=== PATIENT | male | born 1960 | race Asian ===

== ENCOUNTER 2021-05-11 11:51 | Emergency (ER) | payer MEDICARE ==
[~2021-05-11] VITALS: Ht 162.6 cm; Wt 62.8 kg
[~2021-05-11 11:51] MED LIST: ASPI-630 PO; CRESTOR20 MG PO; LISI-517 PO; LISI10TA16 PO; [UNRECOGNIZED DRUG - CODE] MC
[2021-05-11 12:10] VITALS: BP 188/108
--- NOTE | 2021-05-11 12:17 | PHYS DOC ---
Past History Past Medical History: CVA, Hypertension Past Surgical History: No Surgical History Smoking: Cigarettes, Less than 1pk/day Alcohol Use: None Drug Use: None General Adult EDM: Chief Complaint: HYPERTENSION HPI: HPI: Patient is a 60-year-old male being seen in the ER for hypertension. Patient reports that he has had a heaviness in his head and has had some dizziness and nausea so he checked his blood pressure and it was 160/100 at home. Patient takes 20 mg of lisinopril he denies missing a dose. Patient reports that he is not having a headache ache chest pain heaviness and denies any pain. He denies any treatment prior to arrival. He denies vision changes, chest pain, shortness of breath, palpitations. Patient's primary care provider is Dr. Camarena and he has an appointment tomorrow afternoon at 1130. Review of Systems: Review of Systems: 14 body systems of the review of systems have been reviewed. See HPI for pertinent positive and negative responses, otherwise all other systems are negative, nonpertinent or noncontributory Allergies: Allergies: Allergies Coded Allergies Type Severity Reaction Last Updated Verified No Known Drug Allergies 02/17/14 No Physical Exam: PE: Constitutional: Well developed, well nourished, no acute distress, non-toxic appearance. [] HENT: Normocephalic, atraumatic, bilateral external ears normal, oropharynx moist, no oral exudates, nose normal. [] Eyes: PERRLA, 4 mm bilaterally, EOMI, conjunctiva normal, no discharge. [] Neck: Normal range of motion, no stridor Cardiovascular:Heart rate regular rhythm, no murmur [] Lungs & Thorax: Bilateral breath sounds clear to auscultation [] Abdomen: Bowel sounds normal, soft, no tenderness, no masses, no pulsatile masses. [] Skin: Warm, dry, no erythema, no rash. [] Back: Normal range of motion Extremities: No tenderness, no cyanosis, no clubbing, ROM intact, no edema. [] Neurologic: Alert and oriented X 3, normal motor function, normal sensory function, no focal deficits noted. [] Psychologic: Affect normal, judgement normal, mood normal. [] Current Patient Data: Labs: Laboratory Tests Test 05/11/21 12:26 White Blood Count 7.2 x10^3/uL Red Blood Count 4.98 x10^6/uL Hemoglobin 16.2 g/dL Hematocrit 47.3 % Mean Corpuscular Volume 95 fL Mean Corpuscular Hemoglobin 33 pg Mean Corpuscular Hemoglobin Concent 34 g/dL Red Cell Distribution Width 13.3 % Platelet Count 295 x10^3/uL Neutrophils (%) (Auto) 52 % Lymphocytes (%) (Auto) 39 % Monocytes (%) (Auto) 7 % Eosinophils (%) (Auto) 1 % Basophils (%) (Auto) 1 % Neutrophils # (Auto) 3.7 x10^3uL Lymphocytes # (Auto) 2.8 x10^3/uL Monocytes # (Auto) 0.5 x10^3/uL Eosinophils # (Auto) 0.1 x10^3/uL Basophils # (Auto) 0.0 x10^3/uL Sodium Level 140 mmol/L Potassium Level 4.1 mmol/L Chloride Level 106 mmol/L Carbon Dioxide Level 27 mmol/L Anion Gap 7 Blood Urea Nitrogen 10 mg/dL Creatinine 0.9 mg/dL Estimated GFR (Cockcroft-Gault) 85.5 BUN/Creatinine Ratio 11 Glucose Level 95 mg/dL Calcium Level 8.6 mg/dL Total Bilirubin 0.3 mg/dL Aspartate Amino Transf (AST/SGOT) 33 U/L Alanine Aminotransferase (ALT/SGPT) 51 U/L Alkaline Phosphatase 86 U/L Troponin I Quantitative < 0.017 ng/mL Total Protein 7.3 g/dL Albumin 3.8 g/dL Albumin/Globulin Ratio 1.1 Current Medications Medications (Trade) Dose Ordered Sig/Haja Route PRN Reason Start Time Stop Time Status Last Admin Dose Admin Sodium Chloride 1,000 ml @ 1,000 mls/hr 1X ONCE IV 05/11/21 12:15 05/11/21 13:14 DC 05/11/21 12:25 Ondansetron HCl (Zofran) 4 mg 1X ONCE IVP 05/11/21 12:15 05/11/21 12:23 DC 05/11/21 12:25 EKG: EKG: EKG performed by ER staff at 1158 shows sinus rhythm with left bundle branch b lock, no STEMI as read by Dr. Bowman at 1208. [] Radiology/Procedures: Radiology/Procedures: PROCEDURE: CT HEAD WO CONTRAST INDICATION: Reason: dizzy, htn / Spl. Instructions: / History: COMPARISON: May 02, 2016 TECHNIQUE: Axial CT images obtained through the head without intravenous contrast. One or more of the following individualized dose reduction techniques were utilized for this examination: 1. Automated exposure control; 2. Adjustment of the mA and/or kV according to patient size; 3. Use of iterative reconstruction technique. FINDINGS: No intracranial hemorrhage. No significant midline shift. Ventricles and sulci are globally prominent. Scattered foci of low attenuation within the white matter. IMPRESSION: * No acute intracranial hemorrhage. * Scattered regions of low attenuation within the white matter. Non-specific in nature but a common finding and frequently secondary to small vessel ischemic disease. * There is again prominence of the subdural space frontally which could be from focal volume loss with another possible cause including chronic subdural hygroma. * There is also prominent loss of volume at the cerebellum with atrophy. * Repeat demonstration of focus of low density in the right side of the brainstem which could be from prior lacunar infarct. Electronically signed by: Teo Figueredo MD (05/11/2021 12:45 PM) [employer]- [id number] DICTATED AND SIGNED BY: TEO FIGUEREDO MD DATE: 05/11/21 1238 CC: NAIDA FINCH APRN; DEBBI CAMARENA MD ~MTH0 0 PROCEDURE: CHEST AP ONLY XR CHEST 1V History: Reason: dizziness, nausea / Spl. Instructions: / History: Comparison: May 02, [address] chest March 03, 2014 Findings: No consolidation or pleural effusion. Normal heart size. No pneumothorax. Impression: 1. No acute cardiopulmonary process. Electronically signed by: Ulices Cohen DO (05/11/2021 12:58 PM) [id number] DICTATED AND SIGNED BY: ULICES COHEN DO DATE: 05/11/21 1256 CC: NAIDA FINCH APRN; DEBBI CAMARENA MD ~MTH0 0 [] Heart Score: C/O Chest Pain: No Risk Factors: Risk Factors: DM, Current or recent (<one month) smoker, HTN, HLP, family history of CAD, obesity. Risk Scores: Score 0 - 3: 2.5% MACE over next 6 weeks - Discharge Home Score 4 - 6: 20.3% MACE over next 6 weeks - Admit for Clinical Observation Score 7 - 10: 72.7% MACE over next 6 weeks - Early Invasive Strategies Course & Med Decision Making: Course & Med Decision Making Pertinent Labs and Imaging studies reviewed. (See chart for details) [] Patient is a 60-year-old male being seen in the ER for elevated blood pressure reading. Work-up in the ER consisted of a chest x-ray, CT scan of head, EKG, blood work. Patient was treated with IV fluids, Zofran for nausea. Following treatment in the ER, patient reports improvement in his symptoms. Blood pressure recheck was 160/95. Work-up in the ER was negative for any acute findings. Patient was not noted to have any increased BUN/creatinine. Patient is agreeable to be discharged home to follow-up with his primary care provider at his appointment tomorrow afternoon. I spoke with patient about his appointment tomorrow with his primary care provider and he will discuss his HTN treatments with Dr. Camarena. I discussed with patient all findings and diagnostic testing as well as the need to follow-up with PCP for further evaluation and treatment or return to the ER if any new or worsening symptoms. Strict return precautions were also discussed at length. Patient voiced understanding and agreement with the plan. Patient is hemodynamically stable at the time of disposition. Dragon Disclaimer: [employer] Disclaimer: This electronic medical record was generated, in whole or in part, using a voice recognition dictation system. Departure Departure: Impression: Primary Impression: Hypertension Qualified Codes: I10 - Essential (primary) hypertension Additional Impression: Dizziness Disposition: HOME / SELF CARE / HOMELESS Condition: GOOD Referrals: DEBBI CAMARENA MD (PCP) Patient Instructions: Hypertension Additional Instructions: You were seen in the ER today for an elevated blood pressure with symptoms of head heaviness and dizziness. You were treated in the ER with fluids and nausea medication. You reported improvement in your symptoms following the medications. Your work-up in the ER has been unremarkable. Your physical exam was reassuring. You have an appointment tomorrow with your primary care provider. Please follow-up with them tomorrow regarding the management of your hypertension. Prior to your discharge, your blood pressure has decreased. Please return to the ER if you develop chest pain, shortness of breath, dizziness, syncope, uncontrollable nausea or vomiting, palpitations. Please continue to monitor your blood pressures at home and continue taking your lisinopril as directed. EMERGENCY DEPARTMENT GENERAL DISCHARGE INSTRUCTIONS Thank you for coming to [facility] (ED) today and trusting us with you care. We trust that you had a positivie experience in our Emergency Department. If you wish to speak to the department management, you may call the director at [phone]. YOUR FOLLOW UP INSTRUCTIONS ARE FOLLOWS: 1. Do you have a private Doctor? If you do not have a private doctor, please ask for a resource list of physicians or clinics that may be able to assist you with follow up care. 2. The Emergency Physician has interpreted your x-rays. The X-Ray specialist will also review them. If there is a change in the findings, you will be notified in 48 hours when at all possible. 3. A lab test or culture has been done, your results will be reviewed and you will be notified if you need a change in treatment. ADDITIONAL INSTRUCTIONS AND INFORMATION: 1. Your care today has been supervised by a physician who is specially trained in emergency care. Many problems require more than one evaluation for a complete diagnosis and treatment. We recommend that you schedule your follow up appointment as recommended to ensure complete treatment of you illness or injury. If you are unable to obtain follow up care and continue to have a problem, or if your condition worsens, we recommend that you return to the ED. 2. We are not able to safely determine your condition over the phone nor are we able to give sound medical advice over the phone. For these safety reasons, if you call for medical advice we will ask you to come to the ED for further evaluation. 3. If you have any questions regarding these discharge instructions please call the ED at [phone]. SAFETY INFORMATION: In the interest of safety, wellness, and injury prevention; we encourage you to wear your sealbelt, if you smoke; quite smoking, and we encourage family to use a protective helmet for bicycling and other sporting events that present an increased risk for head injury. IF YOUR SYMPTOMS WORSEN OR NEW SYMPTOMS DEVELOP, OR YOU HAVE CONCERNS ABOUT YOUR CONDITION; OR IF YOUR CONDITION WORSENS WHILE YOU ARE WAITING FOR YOUR FOLLOW UP APPOINTMENT; EITHER CONTACT YOUR PRIMARY CARE DOCTOR, THE PHYSICIAN WHOSE NAME AND NUMBER YOU WERE GIVEN, OR RETURN TO THE ED IMMEDIATELY. NAIDA FINCH APRN May 11, 2021 12:17
[2021-05-11] MEDS: ONDANSETRON PF 4 MG/2 ML VIAL. IVP ONE (12:25)
[2021-05-11] MEDS: IV NORMAL SALINE 1,000ML 1,000 ML IV ONE (12:25)
--- NOTE | 2021-05-11 12:39 | EKG ---
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
--- NOTE | 2021-05-11 12:48 | RAD ---
INDICATION: Reason: dizzy, htn / Spl. Instructions: / History: COMPARISON: May 02, 2016 TECHNIQUE: Axial CT images obtained through the head without intravenous contrast. One or more of the following individualized dose reduction techniques were utilized for this examinat ion: 1. Automated exposure control; 2. Adjustment of the mA and/or kV according to patient size; 3 . Use of iterative reconstruction technique. FINDINGS: No intracranial hemorrhage. No significant midline shift. Ventricles and sulci are globally prominent. Scattered foci of low attenuation within the white matter. IMPRESSION: * No acute intracranial hemorrhage. * Scattered regions of low attenuation within the white matter. Non-specific in nature but a common finding and frequently secondary to small vessel ischemic disease. * There is again prominence of the subdural space frontally which could be from focal volume loss wi th another possible cause including chronic subdural hygroma. * There is also prominent loss of volume at the cerebellum with atrophy. * Repeat demonstration of focus of low density in the right side of the brainstem which could be fro m prior lacunar infarct. Electronically signed by: Ron Leon MD (05/11/2021 12:45 PM) [id number]
--- NOTE | 2021-05-11 13:01 | RAD ---
XR CHEST 1V History: Reason: dizziness, nausea / Spl. Instructions: / History: Comparison: May 02, [address] chest March 03, 2014 Findings: No consolidation or pleural effusion. Normal heart size. No pneumothorax. Impression: 1. No acute cardiopulmonary process. Electronically signed by: Ulices De DO (05/11/2021 12:58 PM) [id number]
[2021-05-11 13:05] LABS: BASO % 1 % (0-3); EOS # 0.1 x10^3/uL (0.0-0.7); EOS % 1 % (0-3); HEMATOCRIT 47.3 % (39.0-53.0); HEMOGLOBIN 16.2 g/dL (13.0-17.5); LYMPH # 2.8 x10^3/uL (1.0-4.8); LYMPH % 39 % (24-48); MEAN CORPUSCULAR HEMOGLOBIN 33 pg (25-35); MEAN CORPUSCULAR HGB CONC 34 g/dL (31-37); MEAN CORPUSCULAR VOLUME 95 fL (79-100); MONO # 0.5 x10^3/uL (0.0-1.1); MONO % 7 % (0-9); NEUT # 3.7 x10^3uL (1.8-7.7); NEUT % 52 % (31-73); PLATELET COUNT 295 x10^3/uL (140-400); RED BLOOD COUNT 4.98 x10^6/uL (4.30-5.70); RED CELL DISTRIBUTION WIDTH 13.3 % (11.5-14.5); WHITE BLOOD COUNT 7.2 x10^3/uL (4.0-11.0)
[2021-05-11 13:11] LABS: CALCIUM 8.6 mg/dL (8.5-10.1); CREATININE 0.9 mg/dL (0.7-1.3); GFR 85.5; POTASSIUM 4.1 mmol/L (3.5-5.1)
[2021-05-11 13:18] LABS: ALBUMIN 3.8 g/dL (3.4-5.0); ALBUMIN/GLOBULIN RATIO 1.1 (1.0-1.7); TOTAL BILIRUBIN 0.3 mg/dL (0.2-1.0); TOTAL PROTEIN 7.3 g/dL (6.4-8.2)
== END 2021-05-11 13:50 | disposition home or self-care (01) ==
LOC: ER 11:51
DX: I10 Essential (primary) hypertension (principal); R42 Dizziness and giddiness; F17.210 Nicotine dependence, cigarettes, uncomplicated; Z86.73 Personal history of transient ischemic attack (TIA), and cerebral infarction without residual deficits
CPT/HCPCS: 36415; 70450; 71045; 80053; 84484; 85025; 93005; 96361; 96374; 99285; J2405; J7030